=== PATIENT | male | born 1990 | race African-American/Black ===

== ENCOUNTER 2016-11-09 16:16 | Emergency (ER) | payer SELFPAY ==
[~2016-11-09] VITALS: Ht 180.3 cm; Wt 86.2 kg
[2016-11-09] MEDS ORDERED: IBUP600T26 PO (17:16)
[2016-11-09] MEDS ORDERED: CYCL10TA PO (17:16)
[2016-11-09 17:48] VITALS: BP 128/56
== END 2016-11-09 18:10 | disposition home or self-care (01) ==
LOC: M ED 17:23
DX: M76.891 Other specified enthesopathies of right lower limb, excluding foot (principal); S76.911A Strain of unspecified muscles, fascia and tendons at thigh level, right thigh, initial encounter

== ENCOUNTER 2017-08-24 10:25 | Emergency (ER) | payer SELFPAY ==
[2017-08-24] MEDS: IBUPROFEN 600 MG TAB PO (12:18)
== END 2017-08-24 12:30 | disposition home or self-care (01) ==
LOC: M ED 10:25
DX: S61.257A Open bite of left little finger without damage to nail, initial encounter (principal); W50.3XXA Accidental bite by another person, initial encounter; Y92.018 Other place in single-family (private) house as the place of occurrence of the external cause; F17.210 Nicotine dependence, cigarettes, uncomplicated; Z88.0 Allergy status to penicillin
CPT/HCPCS: 99284

== ENCOUNTER 2018-04-07 09:18 | Emergency (ER) | payer OTHER, SELFPAY | END 2018-04-07 09:51 | disposition home or self-care (01) | LOC: M ED 09:18 | DX: H60.92 Unspecified otitis externa, left ear (principal); H66.92 Otitis media, unspecified, left ear; J06.9 Acute upper respiratory infection, unspecified | CPT/HCPCS: 99282 ==

== ENCOUNTER 2021-04-17 10:30 | Emergency (ER) | payer OTHER ==
[~2021-04-17 10:30] MED LIST: CEFD1CAP8 PO; CYCL-707 PO; FLAG500T PO; FLON27.5 NARES; IBUP-1022 PO; LEVO500T3 PO
== END 2021-04-17 11:16 | disposition left against medical advice (07) ==
LOC: M ED 10:30
DX: Z53.29 Procedure and treatment not carried out because of patient's decision for other reasons (principal)

== ENCOUNTER 2023-02-14 17:23 | Emergency (ER) | payer OTHER ==
[~2023-02-14] VITALS: Ht 185.4 cm; Wt 101.1 kg
[~2023-02-14 17:23] MED LIST changes: -CEFD1CAP8 PO; +CEFD300C41 PO; +LEVO1TAB39 PO; -LEVO500T3 PO
[2023-02-14 21:42] LABS: BASO # 0.1 10^3/uL (0.0-0.2); BASO % 0.7 % (0.0-1.0); EOS # 0.1 10^3/uL (0.0-0.5); EOS % 1.3 % (0.0-3.0); HEMATOCRIT 40.1 % (42.0-52.0); HEMOGLOBIN 13.5 g/dl (13.5-17.5); LYMPH # 3.1 10^3/uL (1.5-5.0); LYMPH % 32.8 % (24.0-44.0); MEAN CORPUSCULAR HEMOGLOBIN 29.9 pg (27.0-33.0); MEAN CORPUSCULAR HGB CONC 33.7 g/dl (32.0-36.5); MEAN CORPUSCULAR VOLUME 88.9 fl (80.0-96.0); MONO # 0.8 10^3/uL (0.0-0.8); MONO % 8.4 % (2.0-8.0); NEUTROPHILS # 5.3 10^3/uL (1.5-8.5); NEUTROPHILS % 56.5 % (36.0-66.0); PLATELET COUNT, AUTOMATED 278 10^3/uL (150-450); RED BLOOD COUNT 4.51 10^6/uL (4.30-6.10); WHITE BLOOD COUNT 9.4 10^3/uL (4.0-10.0)
[2023-02-14 21:52] LABS: BLOOD UREA NITROGEN 13 MG/DL (9-23); CALCIUM LEVEL 9.2 MG/DL (8.5-10.1); CARBON DIOXIDE LEVEL 25 MMOL/L (20-31); CHLORIDE LEVEL 108 MMOL/L (98-107); CK-MB VALUE MASS 2.8 NG/ML (<3.6); CPK CREATINE PHOSPHOKINASE 804 U/L (46-171); CREATININE FOR GFR 0.88 MG/DL (0.70-1.30); GLOMERULAR FILTRATION RATE > 60.0 (>60); GLUCOSE, FASTING 95 MG/DL (60-100); MB/CK RELATIVE INDEX 0.34 (< OR =4); POTASSIUM SERUM 3.7 MMOL/L (3.5-5.1); SODIUM LEVEL 142 MMOL/L (136-145)
[2023-02-14 23:14] VITALS: BP 159/82; TEMP 97.7; O2SAT 100
[2023-02-14 23:38] LABS: CK-MB VALUE MASS 2.2 NG/ML (<3.6)
[2023-02-14 23:40] LABS: MB/CK RELATIVE INDEX 0.29 (< OR =4)
[2023-02-15] MEDS ORDERED: IBUP1TAB7 PO (09:46)
[2023-02-15] MEDS ORDERED: IBUP80TA PO (13:38)
== END 2023-02-15 01:56 | disposition left against medical advice (07) ==
LOC: M ED 17:23
DX: R07.9 Chest pain, unspecified (principal); Z53.21 Procedure and treatment not carried out due to patient leaving prior to being seen by health care provider

== ENCOUNTER 2023-02-15 09:34 | Emergency (ER) | payer OTHER ==
[~2023-02-15] VITALS: Ht 182.9 cm; Wt 101.3 kg
[2023-02-15 09:36] VITALS: BP 164/96; TEMP 97.7; O2SAT 99
[2023-02-15] MEDS ORDERED: IBUP1TAB7 PO (09:46)
[2023-02-15] MEDS ORDERED: IBUPROFEN 800 MG TAB PO ONE (12:40)
[2023-02-15] MEDS ORDERED: IBUP80TA PO (13:38)
== END 2023-02-15 13:47 | disposition home or self-care (01) ==
LOC: M ED 09:34
DX: S46.902A Unspecified injury of unspecified muscle, fascia and tendon at shoulder and upper arm level, left arm, initial encounter (principal); Z88.0 Allergy status to penicillin